=== PATIENT | female | born 1980 | race African-American/Black ===

== ENCOUNTER 2020-11-02 21:24 | Emergency (ER) | payer SELFPAY ==
[~2020-11-02] VITALS: Ht 160 cm; Wt 109.0 kg
[2020-11-02 21:24] VITALS: BP 213/128
[2020-11-02] MEDS ORDERED: PRED20TA PO (22:37)
[2020-11-02] MEDS ORDERED: ORPH100T PO (22:37)
[2020-11-02] MEDS ORDERED: HYDR-2759 PO (22:37)
--- NOTE | 2020-11-02 22:38 | PHYS DOC ---
Past Medical History Past Medical History: Asthma, Migraines Past Surgical History: Appendectomy, , Tubal ligation Smoking Status: Current Every Day Smoker Alcohol Use: Occasionally Drug Use: None General Adult EDM: Chief Complaint: LOWER EXT PAIN HPI: HPI: Patient is a 40 year old [f__sex] who presents with [] Review of Systems: Review of Systems: Constitutional: Denies fever or chills. [] Eyes: Denies change in visual acuity. [] HENT: Denies nasal congestion or sore throat. [] Respiratory: Denies cough or shortness of breath. [] Cardiovascular: Denies chest pain or edema. [] GI: Denies abdominal pain, nausea, vomiting, bloody stools or diarrhea. [] : Denies dysuria. [] Musculoskeletal: Denies back pain or joint pain. [] Integument: Denies rash. [] Neurologic: Denies headache, focal weakness or sensory changes. [] Endocrine: Denies polyuria or polydipsia. [] Lymphatic: Denies swollen glands. [] Psychiatric: Denies depression or anxiety. [] Heart Score: Risk Factors: Risk Factors: DM, Current or recent (<one month) smoker, HTN, HLP, family history of CAD, obesity. Risk Scores: Score 0 - 3: 2.5% MACE over next 6 weeks - Discharge Home Score 4 - 6: 20.3% MACE over next 6 weeks - Admit for Clinical Observation Score 7 - 10: 72.7% MACE over next 6 weeks - Early Invasive Strategies Allergies: Allergies: Allergies Coded Allergies Type Severity Reaction Last Updated Verified No Known Drug Allergies 05/12/16 No Physical Exam: PE: Constitutional: Well developed, well nourished, no acute distress, non-toxic appearance. [] HENT: Normocephalic, atraumatic, bilateral external ears normal, oropharynx moist, no oral exudates, nose normal. [] Eyes: PERRLA, EOMI, conjunctiva normal, no discharge. [] Neck: Normal range of motion, no tenderness, supple, no stridor. [] Cardiovascular:Heart rate regular rhythm, no murmur [] Lungs & Thorax: Bilateral breath sounds clear to auscultation [] Abdomen: Bowel sounds normal, soft, no tenderness, no masses, no pulsatile masses. [] Skin: Warm, dry, no erythema, no rash. [] Back: No tenderness, no CVA tenderness. [] Extremities: No tenderness, no cyanosis, no clubbing, ROM intact, no edema. [] Neurologic: Alert and oriented X 3, normal motor function, normal sensory function, no focal deficits noted. [] Psychologic: Affect normal, judgement normal, mood normal. [] Current Patient Data: Vital Signs: Vital Signs Date Time Temp Pulse Resp B/P (MAP) Pulse Ox O2 Delivery O2 Flow Rate FiO2 11/02/20 21:24 98.9 77 16 213/128 (156) 97 Room Air 98.9 EKG: EKG: [] Radiology/Procedures: Radiology/Procedures: [] Course & Med Decision Making: Course & Med Decision Making Pertinent Labs and Imaging studies reviewed. (See chart for details) [] Dragon Disclaimer: Dragon Disclaimer: This electronic medical record was generated, in whole or in part, using a voice recognition dictation system. Departure Departure Impression: Primary Impression: Sciatica of left side Disposition: 01 HOME SELF CARE/HOMELESS Condition: STABLE Referrals: NO PCP (PCP) АЛЕКСАНДР SAENZ MD Patient Instructions: Sciatica, [id number] Scripts Hydrocodone/Acetaminophen (Hydrocodone-Acetamin 5-325 mg) 1 Each Tablet 0.5-1 TAB PO Q6HRS PRN for PAIN, #10 TAB Prov: ANNA YOUSSEF DO 11/02/20 Orphenadrine Citrate (ORPHENADRINE CITRATE) 100 Mg Tablet.er 100 MG PO BID PRN for MUSCLE PAIN, #14 TAB Prov: ANNA YOUSSEF DO 11/02/20 Prednisone (PREDNISONE) 20 Mg Tablet 2 TAB PO DAILY, #8 TAB Start this medication tomorrow, Thursday11/03/20 Prov: ANNA YOUSSEF DO 11/02/20 ANNA YOUSSEF DO Nov 02, 2020 22:38
[2020-11-02] MEDS: HYDROcodone/APAP 5/325MG 1 TAB TABLET PO ONE (22:47)
[2020-11-02] MEDS: DEXAMETHASONE 4 MG TABLET PO ONE (22:47)
[2020-11-02] MEDS: ORPHENADRINE CITRATE 60 MG/2 ML VIAL. IM ONE (22:48)
== END 2020-11-02 22:52 | disposition home or self-care (01) ==
LOC: ER 21:24
DX: M54.42 Lumbago with sciatica, left side (principal); J45.909 Unspecified asthma, uncomplicated; G43.909 Migraine, unspecified, not intractable, without status migrainosus; F17.200 Nicotine dependence, unspecified, uncomplicated; Z90.89 Acquired absence of other organs; Z98.51 Tubal ligation status; Z98.890 Other specified postprocedural states
CPT/HCPCS: 96372; 99283; J2360

== ENCOUNTER 2020-12-01 16:35 | Emergency (ER) | payer SELFPAY ==
[~2020-12-01] VITALS: Ht 160 cm; Wt 113.2 kg
[2020-12-01 16:35] VITALS: BP 166/89
[~2020-12-01 16:35] MED LIST: HYDR-2759 PO; ORPH100T PO; PRED20TA PO
[2020-12-01] MEDS ORDERED: NAPR-514 PO (17:15)
[2020-12-01] MEDS ORDERED: CYCL10TA2 PO (17:15)
[2020-12-01] MEDS ORDERED: GABA300C18 PO (17:15)
--- NOTE | 2020-12-01 17:15 | PHYS DOC ---
Past Medical History Past Medical History: No Pertinent History, Asthma, Migraines, Sciatica (KEVIN ROWE [employer] REPA[employer]ER) Past Surgical History: Appendectomy, , Tubal ligation (KEVIN ROWE [employer] RE[employer]ER) Smoking Status: Current Every Day Smoker Alcohol Use: Occasionally Drug Use: None (KEVIN ROWE APRN) General Adult EDM: Chief Complaint: LOWER EXT PAIN HPI: HPI: Patient is a 40 year old female with a history of sciatica, low back pain, who presents to the ED today complaining of mild intermittent left lower extremity pain, symptoms have been going on for weeks. Patient denies any trauma. States symptoms are worse when ambulating. Denies any loss of bowel/bladder function. Denies anything specifically relieving the pain. She states she would like a note to be excused from work tomorrow. Denies any history of PEs or DVTs. (KEVIN ROWE [employer] REPA[employer]ER) Review of Systems: Review of Systems: Constitutional: Denies fever or chills. [] GI: Denies abdominal pain, nausea, vomiting, bloody stools or diarrhea. [] : Denies dysuria. [] Musculoskeletal: Reports left lower extremity pain Integument: Denies rash. [] Neurologic: Denies headache, focal weakness or sensory changes. [] Psychiatric: Denies depression or anxiety. [] (KEVIN ROWE [employer] RE[employer]ER) Heart Score: C/O Chest Pain: N/A Risk Factors: Risk Factors: DM, Current or recent (<one month) smoker, HTN, HLP, family history of CAD, obesity. Risk Scores: Score 0 - 3: 2.5% MACE over next 6 weeks - Discharge Home Score 4 - 6: 20.3% MACE over next 6 weeks - Admit for Clinical Observation Score 7 - 10: 72.7% MACE over next 6 weeks - Early Invasive Strategies (KEVIN ROWE [employer]) Allergies: Allergies: Allergies Coded Allergies Type Severity Reaction Last Updated Verified No Known Drug Allergies 05/12/16 No (KEVIN ROWE [employer]ER) Physical Exam: PE: Constitutional: Well developed, well nourished, no acute distress, non-toxic appearance. [] Abdomen: Bowel sounds normal, soft, no tenderness, no masses, no pulsatile masses. [] Skin: Warm, dry, no erythema, no rash. [] Back: Diffuse paraspinal muscle tenderness to the left lumbar spine, no midline lumbar spine tenderness, no CVA tenderness. Positive straight leg raise at around 30 degrees on the left Extremities: No tenderness, no cyanosis, no clubbing, ROM intact, no edema. Negative Homans' sign to the left lower extremity Neurologic: Alert and oriented X 3, normal motor function, normal sensory function, no focal deficits noted. [] Psychologic: Affect normal, judgement normal, mood normal. [] (KEVIN ROWE APRN) Current Patient Data: Vital Signs: Vital Signs Date Time Temp Pulse Resp B/P (MAP) Pulse Ox O2 Delivery O2 Flow Rate FiO2 12/01/20 16:35 99.0 81 18 166/89 (114) 98 Room Air 99.0 (KEVIN ROWE APRN) EKG: EKG: [] (KEVIN ROWE APRN) Radiology/Procedures: Radiology/Procedures: [] (KEVIN ROWE APRN) Course & Med Decision Making: Course & Med Decision Making Pertinent Labs and Imaging studies reviewed. (See chart for details) This is a 40-year-old female patient presented to the ED today with left lower extremity pain consistent with sciatica. She is also requesting a note for work which was provided. Discharge to home. Follow-up with PCP. (KEVIN ROWE APRN) Jeromy Disclaimer: Jeromy Disclaimer: This electronic medical record was generated, in whole or in part, using a voice recognition dictation system. (KEVIN ROWE APRN) Departure Departure Impression: Primary Impression: Sciatica, left side Disposition: HOME / SELF CARE / HOMELESS Condition: STABLE Referrals: NO PCP (PCP) Follow-up with your doctor in 1 week Patient Instructions: Sciatica with [facility] Additional Instructions: You were evaluated in the emergency room for pain consistent with sciatica. Try and follow-up with the primary care doctor. Try and exercise to help with pain. Take the prescribed medications as ordered. Follow-up with your doctor next week Scripts Naproxen (NAPROXEN) 500 Mg Tablet 1 TAB PO BID for pain, #12 TAB 0 Refills Prov: KEVIN ROWE APRN 12/01/20 Cyclobenzaprine Hcl (CYCLOBENZAPRINE HCL) 10 Mg Tablet 1 TAB PO TID, #30 TAB Prov: KEVIN ROWE APRN 12/01/20 Gabapentin (GABAPENTIN) 300 Mg Capsule 300 MG PO TID for NEUROGENIC PAIN, #20 CAP Prov: KEVIN ROWE APRN 12/01/20 Attending Signature Attending Signature I have participated in the care of this patient and I have reviewed and agree with all pertinent clinical information above including history, exam, and recommendations. (SAVANNA PRESCOTT DO) KEVIN ROWE APRN December 01, 2020 17:15 SVAANNA PRESCOTT DO December 01, 2020 17:44
== END 2020-12-01 17:40 | disposition home or self-care (01) ==
LOC: ER 16:35
DX: M54.42 Lumbago with sciatica, left side (principal); J45.909 Unspecified asthma, uncomplicated; G43.909 Migraine, unspecified, not intractable, without status migrainosus; F17.200 Nicotine dependence, unspecified, uncomplicated; Z90.89 Acquired absence of other organs; Z98.51 Tubal ligation status
CPT/HCPCS: 99283

== ENCOUNTER 2021-06-03 09:23 | Emergency (ER) | payer SELFPAY ==
[~2021-06-03] VITALS: Ht 160 cm; Wt 112.3 kg
[~2021-06-03 09:23] MED LIST changes: +CYCL10TA19 PO; +GABA300C18 PO; +NAPR-514 PO
--- NOTE | 2021-06-03 10:26 | PHYS DOC ---
Past Medical History Past Medical History: No Pertinent History, Asthma, Migraines, Sciatica Past Surgical History: Appendectomy, , Tubal ligation Smoking Status: Current Every Day Smoker Alcohol Use: None Drug Use: None General Adult EDM: Chief Complaint: LOWER EXT PAIN HPI: HPI: 41 yo F with no significant past medical history, presents the ED with complaints of left heel pain every time she walks and intermittent paresthesias in her entire left lower extremity "for months." Has no pcp. Reports chronic midline, low back pain-has not seen a physician regarding this. 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 Does not exercise. Cannot recall and blunt trauma to her back or lower extremity. Has no radiculopathy, weakness or paresthesias at rest. Is currently asymptomatic. No relief with OTC medication. Denies any history of IV drug use, history of cancer, history of sciatica, history of malignancy, history of immunocompromise state, neurologic complaints including saddle anesthesia, weakness or paresthesias, urinary retention, bowel or bladder incontinence, night pain, fever/chills/night sweats, unexplained weight loss, anticoagulants or coagulopathy, prolonged steroid use, presence of contusions or abrasions. Review of Systems: Review of Systems: Constitutional: Denies fever or chills. [] Eyes: Denies change in visual acuity. [] HENT: Denies nasal congestion or sore throat. [] Respiratory: Denies cough or shortness of breath. [] Cardiovascular: Denies chest pain or edema. [] GI: Denies abdominal pain, nausea, vomiting, bloody stools or diarrhea. [] : Denies dysuria or hematuria Musculoskeletal: Denies back pain or flank pain Integument: Denies rash or diaphoresis Neurologic: Denies headache, focal weakness or sensory changes. [] Endocrine: Denies polyuria or polydipsia. [] Lymphatic: Denies swollen glands. [] Psychiatric: Denies depression or anxiety. [] Heart Score: C/O Chest Pain: No Risk Factors: Risk Factors: DM, Current or recent (<one month) smoker, HTN, HLP, family history of CAD, obesity. Risk Scores: Score 0 - 3: 2.5% MACE over next 6 weeks - Discharge Home Score 4 - 6: 20.3% MACE over next 6 weeks - Admit for Clinical Observation Score 7 - 10: 72.7% MACE over next 6 weeks - Early Invasive Strategies Allergies: Allergies: Allergies Coded Allergies Type Severity Reaction Last Updated Verified No Known Drug Allergies 05/12/16 No Physical Exam: PE: Constitutional: Well developed, well nourished, no acute distress, non-toxic appearance. HENT: Normocephalic, atraumatic, Eyes: EOMI, conjunctiva normal, no discharge. Neck: Normal range of motion, supple, Cardiovascular: S1/2 present, regular rhythm Lungs & Thorax: Speaking in full sentences, bilateral equal chest rise, no tachypnea or increased work of breathing Abdomen: soft, no tenderness, Skin: Warm, dry, no erythema, no rash. [] Back: No tenderness, no CVA tenderness. [] Extremities: tenderness at base of left calcaneus, no cyanosis, straight leg test negative, L5/S1 sensation intact, pulses intact, LLE with full range of motion Neurologic: Alert and oriented X 3, normal motor function, normal sensory function, no focal deficits noted. [] Psychologic: Affect normal, judgement normal, mood normal. [] Current Patient Data: Vital Signs: Vital Signs Date Time Temp Pulse Resp B/P (MAP) Pulse Ox O2 Delivery O2 Flow Rate FiO2 06/03/21 09:34 98.2 78 18 149/79 (102) 100 Room Air 98.2 EKG: EKG: [] Radiology/Procedures: Radiology/Procedures: IMAGING REPORT Signed PATIENT: JEREMIE ROJAS ACCOUNT: [id number] : 1980 LOCATION: ER AGE: 41 SEX: F EXAM STATUS: REG ER ORD. PHYSICIAN: EDNA NATH DO REASON: left inside the heel pain X 2 weeks. No known injury. PROCEDURE: ANKLE LEFT 3V Site ID: [id number] EXAMINATION: XR EXAM OF ANKLE_LEFT 3V. HISTORY: 41 years Female Reason: left inside the heel pain X 2 weeks. No known injury. COMPARISON: None. FINDINGS: No fracture, dislocation or radiopaque foreign body. The joint spaces and articular surfaces appear unremarkable. There is diffuse soft tissue swelling seen. Inferior calcaneal spur is seen. IMPRESSION: Diffuse soft tissue swelling in the leg. Calcaneal spur. Electronically signed by: Dominic Blackwell MD (06/03/2021 10:31 AM) [id number] DICTATED and SIGNED BY: DOMINIC BLACKWELL MD DATE: 06/03/21 [id number] 0 Course & Med Decision Making: Course & Med Decision Making Pertinent Labs and Imaging studies reviewed. (See chart for details) Concern for left lower extremity paresthesias and left calcaneal spur. Question provided. Will discharge home with strict ED return precautions were given for worsening pain, neurologic deficits or repeat injury. Encouraged urgent outpatient follow-up with PMD and orthopedic surgeon. Life-threatening processes were considered but are low suspicion at this time, given history, physical exam and ED workup. Pt was educated on all prescription medications and adverse effects. All patient's questions were answered and pt was stable at time of discharge. Life/limb-threatening differential includes but is not limited to, trauma (fracture, dislocation, laceration, compartment syndrome, tendon or ligament injury), neurovascular injury or deficitcva/tia, infection (osteomyelitis, abscess, cellulitis, septic arthritis, necrotizing fasciitis), deep vein thro mbosis, renal/cardiac/liver disease, medication adverse effect, lymphedema/anasarca, vascular insufficiency or malignancy, I have spoken with the patient and/or caregivers. I explained the patient's condition, diagnoses and treatment plan based on the information available to me at this time. I have answered the patient and/or caregiver's questions and addressed any concerns. The patient and/or caregivers have a good understanding of patient's diagnosis, condition and treatment plan as can be expected at this point. Vital signs have been stable. Patient's condition is stable and appropriate for discharge from the emergency department. Patient will pursue further outpatient evaluation with primary care physician or other designated or consulting physician as outlined in the discharge instructions. The patient and/or caregivers are agreeable to this plan of care and follow-up instructions have been explained in detail. The patient and/or caregivers have received these instructions in written form and have expressed an understanding of the discharge instructions. The patient and/or caregivers are aware that any significant change of condition or worsening of symptoms should prompt immediate return to this or the closest emergency department or call to 911. Jeromy Disclaimer: Jeromy Disclaimer: This electronic medical record was generated, in whole or in part, using a voice recognition dictation system. Departure Departure Impression: Primary Impression: Calcaneal spur of left foot Additional Impressions: Soft tissue swelling of ankle joint Paresthesia of left lower extremity Disposition: HOME / SELF CARE / HOMELESS Condition: STABLE Referrals: NO PCP (PCP) Follow-up with your primary care physician in 24 to 48 hours OR FOLLOW UP WITH FAMILY MEDICINE: [address], [address] [place] [address] Patient Instructions: Heel Spur, Paresthesia Additional Instructions: FOLLOW UP WITH ORTHOPEDICS: FOR DEFINITIVE MANAGEMENT Orthopaedic Surgery [address], [address] [place] [address] EMERGENCY DEPARTMENT GENERAL DISCHARGE INSTRUCTIONS Thank you for coming to [facility] Emergency Department (ED) today and trusting us with you care. We trust that you had a positive experience in our Emergency Department. If you wish to speak to the department management, you may call the Director at [phone]. YOUR FOLLOW UP INSTRUCTIONS ARE FOLLOWS: 1. Do you have a private Doctor? If you do not have a private doctor, please ask for a resource list of physicians or clinics that may be able to assist you with follow up care. 2. The Emergency Physicain has interpreted your x-rays. The X-Ray specialist will also review them. If there is a change in the findings, you will be notified in 48 hours when at all possible. 3. A lab test or culture has been done, your results will be reviewed and you will be notified if you need a change in treatment. ADDITIONAL INSTRUCTIONS AND INFORMATION: 1. Your care today has been supervised by a physician who is specially trained in emergency care. Many problems require more than one evaluation for a complete diagnosis and treatment. We recommend that you schedule your follow up appointment as recommended to ensure complete treatment of you illness or injury. If you are unable to obtain follow up care and continue to have a problem, or if your condition worsens, we recommend that you return to the ED. 2. We are not able to safely determine your condition over the phone nor are we able to give sound medical advice over the phone. For these safety reasons, if you call for medical advice we will ask you to come to the ED for further evaluation. 3. If you have any questions regarding these discharge instructions please call the ED at [phone]. SAFETY INFORMATION: In the interest of safety, wellness, and injury prevention; we encourage you to wear your sealbelt, if you smoke; quite smoking, and we encourage family to use a protective helmet for bicycling and other sporting events that present an increased risk for head injury. IF YOUR SYMPTOMS WORSEN OR NEW SYMPTOMS DEVELOP, OR YOU HAVE CONCERNS ABOUT YOUR CONDITION; OR IF YOUR CONDITION WORSENS WHILE YOU ARE WAITING FOR YOUR FOLLOW UP APPOINTMENT; EITHER CONTACT YOUR PRIMARY CARE DOCTOR, THE PHYSICIAN WHOSE NAME AND NUMBER YOU WERE GIVEN, OR RETURN TO THE ED IMMEDIATELY. Scripts Ibuprofen (Ibuprofen) 600 Mg Tablet 600 MG PO Q6HRS for pain for 4 Days, #16 TAB Prov: EDNA NATH DO 06/03/21 Hydrocodone Bit/Acetaminophen (HYDROCODONE-APAP 5-325 ) 1 Tab Tablet 1 TAB PO PRN Q6HRS PRN for PAIN for 3 Days, #12 TAB 0 Refills Prov: EDNA NATH DO 06/03/21 EDNA NATH DO Jun 03, 2021 10:26
--- NOTE | 2021-06-03 10:33 | RAD ---
Site ID: [id number] EXAMINATION: XR EXAM OF ANKLE_LEFT 3V. HISTORY: 41 years Female Reason: left inside the heel pain X 2 weeks. No known injury. COMPARISON: None. FINDINGS: No fracture, dislocation or radiopaque foreign body. The joint spaces and articular surfaces appea r unremarkable. There is diffuse soft tissue swelling seen. Inferior calcaneal spur is seen. IMPRESSION: Diffuse soft tissue swelling in the leg. Calcaneal spur. Electronically signed by: Erlin Burton MD (06/03/2021 10:31 AM) [id number]
[2021-06-03] MEDS ORDERED: IBUP-985 PO (10:57)
[2021-06-03] MEDS ORDERED: HYDR-2761 PO (10:57)
[2021-06-03 11:30] VITALS: BP 129/81
== END 2021-06-03 11:54 | disposition home or self-care (01) ==
LOC: ER 09:23
DX: M77.32 Calcaneal spur, left foot (principal); R22.42 Localized swelling, mass and lump, left lower limb; R20.2 Paresthesia of skin; J45.909 Unspecified asthma, uncomplicated; G43.909 Migraine, unspecified, not intractable, without status migrainosus; F17.200 Nicotine dependence, unspecified, uncomplicated
CPT/HCPCS: 29515; 73610; 99283; A6450

== ENCOUNTER 2021-09-05 09:46 | Emergency (ER) | payer SELFPAY ==
[~2021-09-05] VITALS: Ht 160 cm; Wt 99.2 kg
[~2021-09-05 09:46] MED LIST changes: +HYDR-2761 PO; +IBUP-985 PO
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
[2021-09-05] MEDS ORDERED: BUPIVACAINE MPF 0.5% 30 ML VIAL. INJ ONE (11:15)
[2021-09-05] MEDS ORDERED: LIDOCAINE 1% PF 2 ML VIAL. INJ ONE (11:15)
--- NOTE | 2021-09-05 12:04 | RAD ---
EXAM: Right ring finger, 4 views. HISTORY: Closed reduction. COMPARISON: 09/05/2021 FINDINGS: 4 views of the right ring finger are obtained. There has been closed reduction of the fourt h proximal interphalangeal joint. There is a mildly displaced fracture along the palmar base of the f ourth middle phalanx. There is soft tissue swelling. IMPRESSION: 1. Mildly displaced fracture the base of the fourth middle phalanx. 2. Closed reduction of the fourth proximal interphalangeal joint into anatomic alignment. Electronically signed by: Aminta Loja MD (09/05/2021 12:02 PM) [id number]
[2021-09-05] MEDS ORDERED: HYDR-2761 PO (12:17)
[2021-09-05 12:30] VITALS: BP 155/103
== END 2021-09-05 12:30 | disposition home or self-care (01) ==
LOC: ER 09:46
DX: S62.624A Displaced fracture of middle phalanx of right ring finger, initial encounter for closed fracture (principal); J45.909 Unspecified asthma, uncomplicated; G43.909 Migraine, unspecified, not intractable, without status migrainosus; F17.200 Nicotine dependence, unspecified, uncomplicated; Y08.89XA Assault by other specified means, initial encounter; Y93.89 Activity, other specified; Y92.89 Other specified places as the place of occurrence of the external cause; Y99.8 Other external cause status
CPT/HCPCS: 26725; 73140; 99284; J3490

== ENCOUNTER 2021-11-17 13:46 | Emergency (ER) | payer SELFPAY ==
[~2021-11-17] VITALS: Ht 160 cm; Wt 115.1 kg
[2021-11-17 13:49] VITALS: BP 178/94
[2021-11-17] MEDS ORDERED: HYDROcodone/APAP 5/325MG 1 TAB TABLET PO ONE (14:00)
[2021-11-17] MEDS ORDERED: ONDANSETRON ODT 4 MG TAB.RAPDIS. PO ONE (14:00)
[2021-11-17] MEDS ORDERED: IBUP-1007 PO (14:10)
[2021-11-17] MEDS ORDERED: CLIN-94 PO (14:10)
[2021-11-17] MEDS ORDERED: CHLO15MO2 PO (14:10)
--- NOTE | 2021-11-17 14:10 | PHYS DOC ---
Past Medical History Past Medical History: No Pertinent History, Asthma, Migraines, Sciatica Past Surgical History: Appendectomy, Smoking Status: Current Every Day Smoker Alcohol Use: None Drug Use: None General Adult EDM: Chief Complaint: DENTAL PROBLEM HPI: HPI: Patient is a 41-year-old female who presents today with dental pain and headache. Patient states that Thursday evening her right lower jaw started hurting and throbbing, she states that over the weekend she has taken Tylenol and ibuprofen without any relief of the pain she presents here to the emergency department because the tooth pain is now causing her to have a headache. Patient states that she has had multiple issues with this area in the past and has not followed up with a dentist because she does not have one. Patient denies chest pain, shortness of breath, or fever and chills. Review of Systems: Review of Systems: Constitutional: Denies fever or chills. [] Eyes: Denies change in visual acuity. [] HENT: Right lower jaw pain denies nasal congestion or sore throat. [] Respiratory: Denies cough or shortness of breath. [] Cardiovascular: Denies chest pain or edema. [] GI: Denies abdominal pain, nausea, vomiting, bloody stools or diarrhea. [] : Denies dysuria. [] Musculoskeletal: Denies back pain or joint pain. [] Integument: Denies rash. [] Neurologic: headache, denies focal weakness or sensory changes. [] Endocrine: Denies polyuria or polydipsia. [] Lymphatic: Denies swollen glands. [] Psychiatric: Denies depression or anxiety. [] Heart Score: C/O Chest Pain: No Risk Factors: Risk Factors: DM, Current or recent (<one month) smoker, HTN, HLP, family history of CAD, obesity. Risk Scores: Score 0 - 3: 2.5% MACE over next 6 weeks - Discharge Home Score 4 - 6: 20.3% MACE over next 6 weeks - Admit for Clinical Observation Score 7 - 10: 72.7% MACE over next 6 weeks - Early Invasive Strategies Allergies: Allergies: Allergies Coded Allergies Type Severity Reaction Last Updated Verified No Known Drug Allergies 05/12/16 No Physical Exam: PE: Constitutional: Well developed, well nourished, no acute distress, non-toxic appearance. [] HENT: right lower teeth multiple filled caries noted, broken tooth at #29, it is broken at the root with an exposed root noted, area is reddened and swollen and painful to touch, Eyes: PERRLA, EOMI, conjunctiva normal, no discharge. [] Neck: Normal range of motion, no tenderness, supple, no stridor. [] Cardiovascular:Heart rate regular rhythm, no murmur [] Lungs & Thorax: Bilateral breath sounds clear to auscultation [] Abdomen: Bowel sounds normal, soft, no tenderness, no masses, no pulsatile masses. [] Skin: Warm, dry, no erythema, no rash. [] Back: No tenderness, no CVA tenderness. [] Extremities: No tenderness, no cyanosis, no clubbing, ROM intact, no edema. [] Neurologic: Alert and oriented X 3, normal motor function, normal sensory f unction, no focal deficits noted. [] Psychologic: Affect normal, judgement normal, mood normal. [] Current Patient Data: Vital Signs: Vital Signs Date Time Temp Pulse Resp B/P (MAP) Pulse Ox O2 Delivery O2 Flow Rate FiO2 11/17/21 14:13 18 100 11/17/21 13:49 97.7 86 18 178/94 (122) 96 Room Air 97.7 EKG: EKG: [] Radiology/Procedures: Radiology/Procedures: [] Course & Med Decision Making: Course & Med Decision Making Pertinent Labs and Imaging studies reviewed. (See chart for details) Patient will be given a list of dental clinics that she needs to follow-up with [facility] for further evaluation and management of this broken tooth. Patient will be given 2 hydrocodone's while here in the emergency department and a dose of Zofran. Patient will be sent home with prescriptions for clindamycin and Motrin 600, patient is encouraged to follow-up [facility] for further evaluation and management. Dragon Disclaimer: Jeromy Disclaimer: This electronic medical record was generated, in whole or in part, using a voice recognition dictation system. Departure Departure Impression: Primary Impression: Broken tooth Qualified Codes: S02.5XXB - Fracture of tooth (traumatic), initial encounter for open fracture Additional Impressions: Dental caries Headache Qualified Codes: R51.9 - Headache, unspecified Disposition: HOME / SELF CARE / HOMELESS Condition: STABLE Referrals: NO PCP (PCP) Patient Instructions: Dental Caries, Dental Fracture, General Headache Without Cause Additional Instructions: Clindamycin 300 take one tablet twice daily for 10 days Motrin 600 mg take 1 tablet every 6 hours as needed for pain Peridex mouthwash, take as directed twice daily Follow-up with dental clinic as soon as possible for further evaluation and management of your broken tooth Return to the emergency department for increased pain, development of a fever, or swelling of your face, or inability to swallow your saliva due to swelling in your mouth. [facility] [address] [place] [address] [facility] [address] [place] [address] [facility] [address] [facility] [place] [address] [facility] [address] [place] [address] [facility] [address] [place] [address] [address] [place] [address] [address] [place] [address] [place] [address] [facility] [address] [place] [address] [facility] [address] [place] [address] [facility] [address] [place] [address] Scripts Clindamycin Hcl (CLINDAMYCIN HCL) 300 Mg Capsule 1 CAP PO BID, #20 CAP Prov: JENSEN FERNÁNDEZ [employer] 11/17/21 Ibuprofen (IBUPROFEN) 600 Mg Tablet 600 MG PO PRN Q6HRS PRN for INFLAMMATION for 30 Days, #90 TAB Prov: JENSEN FERNÁNDEZ [employer] 11/17/21 Chlorhexidine Gluconate (PERIDEX) 15 Ml Mouthwash 15 ML PO BID for 30 Days, #946 ML 0 Refills Prov: JENESN FERNÁNDEZ [employer] 11/17/21 JENSEN FERNÁNDEZ [employer] Nov 17, 2021 14:10
== END 2021-11-17 14:17 | disposition home or self-care (01) ==
LOC: ER 13:46
DX: S02.5XXB Fracture of tooth (traumatic), initial encounter for open fracture (principal); K02.9 Dental caries, unspecified; J45.909 Unspecified asthma, uncomplicated; G43.909 Migraine, unspecified, not intractable, without status migrainosus; F17.200 Nicotine dependence, unspecified, uncomplicated; X58.XXXA Exposure to other specified factors, initial encounter; Y93.89 Activity, other specified; Y92.89 Other specified places as the place of occurrence of the external cause; Y99.8 Other external cause status
CPT/HCPCS: 99283